=== PATIENT | female | born 1950 | race Caucasian/White ===

== ENCOUNTER 2025-05-09 20:10 | Inpatient (IN) | payer MEDICARE ==
[~2025-05-09] VITALS: Ht 157.5 cm; Wt 62.1 kg
[2025-05-09] MEDS ORDERED: IBLOOD GLUCOSE TEST STRIP 1 EA TEST XX ONE (20:30)
[2025-05-09 20:47] LABS: BASOPHILS 0.4 % (0.1-1.2)
[2025-05-09] MEDS ORDERED: LACTATED RINGER'S 1,000 ML IV ONE ×2 (21:00→23:30)
[2025-05-09 21:30] LABS: EOSINOPHILS 0.2 % (0.7-5.8); LYMPHOCYTES 10.7 % (19.3-51.7); MCH 20.6 PG (25.6-32.2); MCHC 27.9 g/dL (32.2-35.5); MCV 74.0 fL (79.4-94.8); MONOCYTES 2.3 % (4.7-12.5); NEUTROPHILS 85.8 % (34.0-71.1); RBC 7.18 M/uL (3.93-5.22)
[2025-05-09 21:54] LABS: ALT (SGPT) 48.0 U/L (14-59); AST (SGOT) 42.0 U/L (15-37); GLOMERULAR FILTRATION RATE,EST 19.0 mL/min (>60); PROTEIN, TOTAL 6.8 g/dL (6.4-8.2); UREA NITROGEN 49.0 mg/dL (7-18)
[2025-05-09 22:28] LABS: LACTIC ACID, BLOOD 3.6 mmol/L (0.4-2.0)
[2025-05-09 22:54] LABS: BLOOD/HGB, URINE NEGATIVE (Negative); KETONE, URINE NEGATIVE (Negative); LEUK ESTERASE, URINE TRACE (negative); NITRITE, URINE POSITIVE (negative)
[2025-05-09 23:06] LABS: BACTERIA, URINE 3+ /hpf (negative); CASTS, URINE NONE SEEN \\lpf; CRYSTALS, URINE NONE SEEN (0-1+); EPITHELIAL CELLS, URINE SQUAMOUS 1+ /lpf (0-1+); REFLEX CULTURE, URINE Yes (No)
[2025-05-10] VITALS (29 sets, daily range): BP systolic 88–142; BP diastolic 48–72
[2025-05-10] LABS: LACTIC ACID, BLOOD 2.9 mmol/L (0.4-2.0)
[2025-05-10] MEDS ORDERED: NOREPINEPHRINE BITARTRATE 250 ML IV SCH (00:45)
[2025-05-10] MEDS ORDERED: LACTATED RINGER'S 1,000 ML IV ONE ×3 (04:00→13:15)
[2025-05-10] MEDS ORDERED: LIDOCAINE 2% VISCOUS 6 ML SYR TOP ONE (04:30)
[2025-05-10] MEDS ORDERED: AZITHROMYCIN 500 MG in DEXTROSE 5% 250 ML IV ONE (04:45)
[2025-05-10] MEDS ORDERED: OXYCODONE-ACET1 EAC3 PO (07:56)
[2025-05-10] MEDS ORDERED: TIZANIDINE HCL2 MG PO (07:57)
[2025-05-10] MEDS ORDERED: TRELEGY ELLIPT1 EACH INH (07:57)
[2025-05-10] MEDS ORDERED: BUPROPION XL150 MG PO (07:58)
[2025-05-10] MEDS ORDERED: AMIODARONE HCL200 MG PO (07:59)
[2025-05-10] MEDS ORDERED: PREGABALIN100 MG PO (08:00)
[2025-05-10] MEDS ORDERED: ATORVASTATIN CA40 MG PO (08:00)
[2025-05-10] MEDS ORDERED: FARXIGA10 MG PO (08:00)
[2025-05-10] MEDS ORDERED: SODIUM CHLORIDE 0.9% 1,000 ML IV SCH (08:00)
[2025-05-10] MEDS ORDERED: VENTOLIN HFA18 GM INH (08:01)
[2025-05-10] MEDS ORDERED: FUROSEMIDE40 MG PO (08:01)
[2025-05-10] MEDS ORDERED: DILTIAZEM HCL60 MG PO (08:02)
[2025-05-10] MEDS ORDERED: ELIQUIS5 MG PO (08:02)
[2025-05-10] MEDS ORDERED: SPIRONOLACTONE25 MG PO (08:02)
[2025-05-10] MEDS ORDERED: METFORMIN HCL500 MG PO (08:03)
[2025-05-10] MEDS ORDERED: METOPROLOL SUC100 MG PO (08:03)
[2025-05-10] MEDS ORDERED: LISINOPRIL20 MG PO (08:03)
[2025-05-10] MEDS ORDERED: ESOMEPRAZOLE MA40 MG PO (08:04)
[2025-05-10] MEDS ORDERED: DULOXETINE HCL60 MG PO (08:04)
--- NOTE | 2025-05-10 08:15 | NUR ---
PT TO FLOOR WITH ADALGISA GONZALES. PT DROWSY BUT ANSWERING QUESTIONS APPROPRIATLY. TEJINDERBEHZAD AT 5 MCQ. SWITCHED TO OUR MONITORS. HAD A SMALL BM AND CLEANED UP WITH ELENA SOUZA. PT THEN STATES THAT HER ABD IS PAINFUL "LIKE A RUBBERBAND IS WRAPPED AROUND HER INSIDES". ABD DOES APPEAR DISTENDED AND TENDED ON RIGHT TO MID SIDE. LAB IN ROOM TO DRAW BLOOD.
[2025-05-10] MEDS ORDERED: ELECTROLTYTE REPLACEMEMT CCU 1 EACH EA PO/IV SCH (09:00)
[2025-05-10] MEDS ORDERED: POTASSIUM CHLORIDE 10 MEQ TABCR PO ONE ×2 (09:00→20:45)
[2025-05-10] MEDS ORDERED: POTASSIUM REPLACEMENT PROTOCOL ORAL/IV PO/IV SCH (09:00)
[2025-05-10] MEDS ORDERED: PANTOPRAZOLE SODIUM 40 MG TABEC PO SCH (09:00)
[2025-05-10] MEDS ORDERED: MAGNESIUM REPLACEMENT PROTOCOL ORAL/IV PO/IV SCH (09:00)
--- NOTE | 2025-05-10 10:07 | NUR ---
DR HURD AT BEDSIDE WHILE DRAWING LABS. ASKED TO TURN THE NOREPI DOWN TO 2 MCG. PT REMAINS DROWSY.
[2025-05-10 10:25] LABS: GLOMERULAR FILTRATION RATE,EST 24.0 mL/min (>60); UREA NITROGEN 45.0 mg/dL (7-18)
--- NOTE | 2025-05-10 11:14 | NUR ---
PT INSISTED ON GETTING TO BSC FOR BM. 2 PERSON ASSIST AND PT DID OK. HAD A VERY LARGE FORMED BM. PT STATES SHE FEELS BETTER. REMAINS DROWSY BUT ORIENTED. TURNED DOWN NOREPI TO 1.0MCG
[2025-05-10] MEDS ORDERED: PHARMACY RENAL DOSE ADJUSTMENT 1 DOSE MISC PO SCH (12:00)
--- NOTE | 2025-05-10 12:22 | NUR ---
PT RESTING IN BED, CALL LIGHT WITHIN REACH, BEDRAILS UP FOR SAFETY. PT RESTING WITH EYES CLOSED, RESPIRATIONS EVEN AND UNLABORED. MEDICATION TITRATION COMPLETED PER ORDER.
--- NOTE | 2025-05-10 13:20 | NUR ---
SPOKE WITH DR Estes AND PT REGARDING POSSIBLITY OF GALLBLADDER SURGERY AND NEED TO HOLD BLOOD THINNERS FOR 48 HRS. PT DROWSY BUT VERBALIZED UNDERSTANDING. ORDERED CT WITH CONTRAST, GIVING BOLUS AND DRAWING LABS PRIOR TO IMAGING. TURNED LEVO DOWN TO 2.0MCG.
--- NOTE | 2025-05-10 14:39 | NUR ---
PT BOLUS COMPLETE, SWITCHED BACK TO IVF AT 125. PT STILL SLEEPING, CALL LIGHT IN LAP. AROUSES TO VOICE.
--- NOTE | 2025-05-10 15:01 | NUR ---
LAB DRAWING BMP. PT TOLERATED WELL.
[2025-05-10 15:16] LABS: GLOMERULAR FILTRATION RATE,EST 31.0 mL/min (>60); UREA NITROGEN 41.0 mg/dL (7-18)
--- NOTE | 2025-05-10 15:42 | NUR ---
PATIENT BRIEF WAS CHANGED BY THIS AUGER MILL OPERATOR AND ADALGISA PURDY. PERICARE WAS DONE AND WATER WAS REFILLED. PATIENTS CALL LIGHT IS WITHIN REACH AND NO FURTHER NEEDS AT THIS TIME.
--- NOTE | 2025-05-10 16:25 | NUR ---
TOOK PT TO CT WITH ELENA ARCHIBALD. PT TOLERATED WELL. BACK TO ROOM. PT STATES SHE IS JUST SO TIRED TODAY. TURNED OFF LEVO.
--- NOTE | 2025-05-10 17:08 | NUR ---
PATIENT WAS SAT UP IN BED TO EAT DINNER. PATIENTS CALL LIGHT IS WITHIN REACH AND NO FURTHER NEEDS AT THIS TIME.
--- NOTE | 2025-05-10 18:01 | NUR ---
PT LOOKING FOR GLASSES AND CELL PHONE. BELONGINGS INVENTORY REVIEWED, NEITHER WERE PRESENT ON ARRIVAL. VM LEFT FOR FRIEND, DON INQUIRING LOCATION OF ITEMS. SPOKE WITH DTR ALSO ON CONTACT LIST, SHE WAS UNABLE TO ASSIST SHE WAS NOT HERE AT TIME OF ADMISSION. CALL THEN PLACED TO ARNALDO, FRIEND, WHO STATED THEY DO HAVE HER GLASSES, CELL PHONE, AND PURSE. SHE STATED THEY WOULD BE DROPPING THESE WELL HER SUITCASE OFF TOMORROW MORNING. PT INFORMED AND VERBALIZED UNDERSTANDING.
--- NOTE | 2025-05-10 18:32 | NUR ---
PT UP TO BSC WITH MORE DIAHRREA. TOLERATED WELL. RATES BELLY AND FLANK PAIN 6\10. CALLED DR HURD FOR PAIN MEDS.
[2025-05-10] MEDS ORDERED: HYDROmorphone HCL 1 MG/ML SYR IV PRN (18:45)
[2025-05-10] MEDS ORDERED: NICOTINE 14 MG/24 HR 1 EA TDSY TD SCH (19:19)
--- NOTE | 2025-05-10 19:48 | NUR ---
RECEIVED REPORT FROM DAY SHIFT RN. PATIENT IS RESTING IN BED WITH EYES CLOSED, RR 22. NAD NOTED. CALL LIGHT IN REACH. BED ALARM ON FOR SAFETY.
[2025-05-10] MEDS ORDERED: ACETAMINOPHEN 500 MG TAB PO PRN (21:15)
--- NOTE | 2025-05-10 21:57 | NUR ---
PATIENT IN CONT OF STOOL. PATIENTS ATTEND CHNAGED AND HAZEL CARE COMPLETED. PATIENT REPOSITIONED IN BED. PATIENTS PM MEDS GIVEN PER ORDER. PATIENT GIVEN PRN TYLENOL FOR A TEMP OF 100.1. PATIENT DENIES ANY PAIN OR NAUSEA. RAMACHANDRAN CARE COMPLETED. SIPS OF WATER PROVIDED PATIENT TITRATED TO RA. PATIENT DENIES NAY FURTHER NEEDS. CALL LIGHT IN REACH.
--- NOTE | 2025-05-10 22:44 | NUR ---
THIS RN ROUNDING ON PATIENT, SLEEPING, RESPIRATIONS EVEN. IV FLUIDS INFUSING. BED ALARM IN PLACE FOR SAFETY. PT ALLOWED TO SLEEP AT THIS TIME.
--- NOTE | 2025-05-10 23:00 | NUR ---
PATIENT IS RESTING IN BED WITH EYES CLOSED, RR 21. NAD NOTED. CALL LIGHT IN REACH. BED ALARM ON FOR SAFETY.
[2025-05-11] VITALS (20 sets, daily range): BP systolic 104–154; BP diastolic 58–95
--- NOTE | 2025-05-11 00:13 | NUR ---
PATIENT ASSESMENT COMPLETED. PATIENT DENIES ANY PAIN OR NAUSEA. PATIENTS ATTEND DRY AT THIS TIME. PATIENTS RAMACHANDRAN EMPTIED. INTAKE AND OUTPUT RECORDED. PATIENT REPOSITIONED IN BED. PATIENT REMAINS ON 2L VIA NC. PATIENT DENIES NAY NEEDS. CALL LIGHT IN REACH. IV INFUSING PER ORDER. BED ALARM ON FOR SAFETY.
--- NOTE | 2025-05-11 01:57 | NUR ---
PATIENT IS RESTING IN BED. PATIENT REPOSITIONED IN BED. PATIENT DENIES ANY PAIN. PATIENT LETY ANY NEEDS. CALL LIGHT IN REACH. BED ALARM ON FOR SAFETY. PATIENT TITRATED TO 1L VIA NC. NAD NOTED. ATTEND DRY AT THIS TIME. CALL LIGHT IN REACH.
--- NOTE | 2025-05-11 03:06 | NUR ---
PATIENT IS RESTING IN BED ON RIGHT SIDE, RR 20. NAD NOTED. CALL LIGHT IN REACH.
--- NOTE | 2025-05-11 04:15 | NUR ---
PATIENT IS RESTING IN BED. PATIENT AWOKE WHEN THIS RN ENTERED ROOM. PATIENT DENIES ANY PAIN OR NAUSEA. ATTEND DRY AT THIS TIME. RAMACHANDRAN EMPTIED. PATIENT REMAINS ON 1L NC. IV INFUSING PER ORDER. PATIENT REPOSITIONED. PATIENT IS DROWSY. PATIEN IS AAOX4. NO FURTHER NEEDS NOTED. CALL LIGHT IN REACH. BED ALARM ON FOR SAFETY.
--- NOTE | 2025-05-11 05:00 | NUR ---
PATIENT IS RESTING IN BED WITH EYES CLOSED, RR 23. NAD NOTED. CALL LIGHT IN REACH. BED ALARM ON FOR SAFETY. IV INFUSING PER ORDER.
[2025-05-11 05:35] LABS: BASOPHILS 0.2 % (0.1-1.2); EOSINOPHILS 0.7 % (0.7-5.8); LYMPHOCYTES 12.1 % (19.3-51.7); MCH 20.9 PG (25.6-32.2); MCHC 28.8 g/dL (32.2-35.5); MCV 72.6 fL (79.4-94.8); MONOCYTES 8.1 % (4.7-12.5); NEUTROPHILS 78.6 % (34.0-71.1); RBC 5.36 M/uL (3.93-5.22)
[2025-05-11 05:42] LABS: GLOMERULAR FILTRATION RATE,EST 45.0 mL/min (>60); UREA NITROGEN 31.0 mg/dL (7-18)
--- NOTE | 2025-05-11 06:00 | NUR ---
PATIENT INCONT OF STOOL. HAZEL CARE COMPLETED. NEW ATTEND IN PLACE. PATIENT DENIES ANY PAIN. PATIENT REMAINS ON 1L VIA NC. PATIENT PROIVDED FRESH ICE WATER AND COFEE. RAMACHANDRAN EMPITED AND RAMACHANDRAN CARE COMPLETED. PATIENT DENIES ANY FURTHER NEEDS. CALL LIGHT IN REACH. BED ALARM ON FOR SAFETY.
--- NOTE | 2025-05-11 07:23 | EKG ---
[facility] [address] [facility] [place], [place] [address] Signed Sinus bradycardia Septal infarct , age undetermined Abnormal ECG No previous ECGs available Confirmed by BUNNY HRUD MD ([id number]) on 05/11/2025 7:23:13 AM Electronically Signed By: BUNNY HURD 05/11/25722 PATIENT NAME: SILVIA ROMERO Electrocardiogram DATE OF : 54 PHYSICIAN: BUNNY HURD REPORT #: [id number] REPORT IS CONFIDENTIAL AND NOT TO BE RELEASED WITHOUT AUTHORIZATION
--- NOTE | 2025-05-11 07:40 | NUR ---
REPORT RECEIVED FROM ADALGISA EGAN. PT SLEEPING IN BED. CALL LIGHT ON LAP.
[2025-05-11] MEDS ORDERED: LACTOBACILLUS RHAMNOSUS GG 1 EACH CAP PO SCH (09:00)
--- NOTE | 2025-05-11 09:15 | NUR ---
PT'S NIECE CALLED FOR AN UPDATE AND THEN TRANSFERED INTO PT ROOM TO SPEAK WITH PT.
[2025-05-11] MEDS ORDERED: IBLOOD GLUCOSE TEST STRIP 1 EA TEST XX PRN (09:45)
[2025-05-11] MEDS ORDERED: PIPERACILLIN/TAZOBACTAM 4.5 GM in SODIUM CHLORIDE 0.9% 100 ML IV SCH (09:45)
[2025-05-11] MEDS ORDERED: DEXTROSE 5% 1,000 ML IV PRN (09:45)
[2025-05-11] MEDS ORDERED: GLUCAGON,HUMAN RECOMBINANT 1 MG/ML VIAL SUB-Q PRN (09:45)
[2025-05-11] MEDS ORDERED: DEXTROSE 50% 50 ML SYR IV PRN ×2 (09:45)
--- NOTE | 2025-05-11 10:25 | NUR ---
PT CALLED TO REPORT SHE HAD ANOTHER LOOSE STOOL. CHANGED WITH ASSISTANCE FROM ELENA LEWIS. PT DENIES NEEDS ATT. REMINDED THAT [employer] WOULD BE IN LATER TODAY TO WORK WITH HER. OFFERED TO GET UP TO CHAIR. STATES THAT SHE NEEDS A NAP FIRST.
--- NOTE | 2025-05-11 11:00 | NUR ---
PT FRIENDS CAME IN AND BROUGHT HER GLASSES, PURSE, CELL PHONE AND PRODUCTION ASSEMBLER AND SUITCASE. PT HAPPY TO HAVE HER GLASSES, SHE CAN NOW READ THE TV GUIDE.
[2025-05-11] MEDS ORDERED: IBLOOD GLUCOSE TEST STRIP 1 EA TEST VI SCH (12:00)
[2025-05-11] MEDS ORDERED: Insulin Regular, Human 100 UNIT/ML ML SUB-Q SCH (12:00)
--- NOTE | 2025-05-11 12:37 | NUR ---
CHANGED PT AFTER ANOTHER BOUT OF DIAHRREA. LUNCH AT BEDSIDE. STATES THAT HER ABD STILL HURTS AND IS TENDER TO TOUCH.
--- NOTE | 2025-05-11 13:24 | NUR ---
SPOKE WITH DR RUSSO AND PT REGARDING POSSIBLE HIDA SCOPE TOMORROW. STILL HAS RUQ PAIN.
[2025-05-11 14:12] LABS: ALT (SGPT) 29.0 U/L (14-59); AST (SGOT) 30.0 U/L (15-37); PROTEIN, TOTAL 4.8 g/dL (6.4-8.2)
[2025-05-11] MEDS ORDERED: KLOR-CON 1010 MEQ PO (15:30)
[2025-05-11] MEDS ORDERED: FEROSUL325 MG PO (15:31)
--- NOTE | 2025-05-11 15:38 | NUR ---
medications reconciled using pharmacy records and discharge orders from [facility] on 03/23/25
--- NOTE | 2025-05-11 15:58 | NUR ---
PT GOT UP TO CHAIR WITH MANAGER MARKETING. BUT HAD A BM SOON SHE SAT DOWN. WENT IN AND CHANGED HER AND GOT HER BACK TO BED. RATES UPPER QUAD PAIN 6\10, GIVEN PRN. STATES SHE FEELS LIKE SHE HAS A FEVER, 98.7.
--- NOTE | 2025-05-11 17:05 | NUR ---
REPORT RECEIVED FROM CCU RN PT MOVED TO [facility] VIA BED. SHE IS AWAKE AND COOPERATIVE DENIES DISOCMFORTS. ORIENTED TO ROOM AND ROUTINE NEEDED ITEMS ON BEDSIDE TABLE.
--- NOTE | 2025-05-11 17:53 | NUR ---
PT EATS MOST OF EVENING MEAL AGREES SHE IS COMFORTABLE DENIES NEEDS
--- NOTE | 2025-05-11 19:41 | NUR ---
REPORT RECEIVED FROM SCARLETT DIANA. PT RESTING IN BED WITH CALL LIGHT WITHIN REACH. NO REQUESTS AT THIS TIME.
--- NOTE | 2025-05-11 20:52 | NUR ---
ASSESSMENT COMPLETE. PT RESTING IN BED WATCHING TV. PT HAD LOOSE STOOL, STOOL SAMPLE SENT ORDERED. COFFEE GIVEN REQUESTED. NO OTHER REQUESTS AT THIS TIME. CALL LIGHT WITHIN REACH.
--- NOTE | 2025-05-11 21:30 | NUR ---
PATIENT CALLED STATING SHE'S HAVING A BM AGAIN. 2 PA. HAZEL AND RAMACHANDRAN CARE PERFORMED. FRESH CHUX AND ATTENDS PLACED. NO FURTHER NEEDS AT THIS TIME. CALL LIGHT AND SIDE TABLE WITHIN REACH.
--- NOTE | 2025-05-11 22:21 | NUR ---
PT RESTING IN BED WATCHING TV. NO REQUESTS AT THIS TIME. CALL LIGHT WITHIN REACH.
--- NOTE | 2025-05-11 23:42 | NUR ---
PT RESTING IN BED WITH EYES CLOSED AND RESPIRATIONS EVEN AND UNLABORED. CALL LIGHT WITHIN REACH.
[2025-05-12] VITALS (8 sets, daily range): BP systolic 153–170; BP diastolic 87–97
--- NOTE | 2025-05-12 00:43 | NUR ---
PT RESTING IN BED WITH EYES CLOSED AND RESPIRATIONS EVEN AND UNLABORED. CALL LIGHT WTIHIN REACH.
--- NOTE | 2025-05-12 01:41 | NUR ---
RECEIVED REPORT FROM PRIOR RN - CLEMENTINA. PT SITTING UP IN THE BED WATCHING TV ON ROUNDS. DENIES ANY NEEDS, IS AWARE THAT SHE IS NPO FOR HIDA SCAN IN THE MORNING. PT STATES SHE IS STILL INCONTINENT OF STOOL, IT JUST COMES ON AND NO WARNING, ATTENDS IN PLACE. PT WAS VERY TALKATIVE AND VERY PLEASANT. SPENT ABOUT 10 MINUTES VISITING WITH PATIENT DURING ROUNDS. ALL PT CARE NEEDS MET AT THIS TIME, CALL LIGHT WITHIN REACH.
--- NOTE | 2025-05-12 03:44 | NUR ---
PT CALL LIGHT ON, REQUESTING TO BE CHANGED, HAD INCONTINENT EPISODE OF STOOL. THIS RN IN TO CHANGE PATIENT, STOOL IS MUCOUSY/LOOSE. PERICARE PERFORMED AROUND CATHETER, NEW ATTENDS IN PLACE. CALL LIGHT WITHIN REACH, PT HEAD ELEVATED AND PT WATCHING TV AT THIS TIME. DENIES ANY OTHER NEEDS.
--- NOTE | 2025-05-12 06:06 | NUR ---
MD NOTIFIED PATIENT HAS STILL HAVE 4 MUCOUSY STOOLS IN THE LAST FEW HOURS. CDIFF IS NEGATIVE, REVIEWED RESULTS WITH CHARGE. ORDER FOR IMODIUM 2MG Q12P. ORDERS REPEATED BACK AND VERIFIED, ORDERED FOR MD. NO OTHER CONCERNS AT THIS TIME.
[2025-05-12] MEDS ORDERED: LOPERAMIDE HCL 2 MG CAP PO PRN (06:15)
--- NOTE | 2025-05-12 08:01 | NUR ---
PT REPORTED BEING WET WHEN I WENT IN FOR BLOOD SUGAR CHECKS. I CHANGED PT, PROVIDING HAZEL CARE AND PICKED UP ROOM INCLUDING TAKING OUT TRASH. CALL LIGHT WITHIN REACH, AND PT NEEDING NOTHING MORE At this time.
--- NOTE | 2025-05-12 09:31 | NUR ---
PATIENT CALLED, THIS PRODUCTION INSPECTOR IN TO ASSIST. PATIENT HAD LARGE INCONT. BM. HAZEL CARE AND CATH CARE DONE. NEW DEPENDS IN PLACE. CALL LIGHT IN REACH. NO FURTHER NEEDS AT THIS TIME.
--- NOTE | 2025-05-12 10:21 | NUR ---
UR CLINICAL REVIEW: 2 MN FOR VERSALUS-PER LOANS CONSULTANT MEETS INPT FOR SEPSIS/UTI WITH NEED FOR SERIAL LABS,IVF, IV ABX AND MONITORING [facility] INPT 05/10/25 @ 0800 ORDER MATCHES REG CLINICALS FAXED TO [facility] FOR REVIEW DISCHARGE TO HOME WITH SPOUSE WHEN STABLE.
--- NOTE | 2025-05-12 11:00 | NUR ---
Received an unpleasant call from Brook's niece, Rubi. She is very upset as she attempted to get information and it was not given as she is not listed as a contact. She is stating she is the pts POA. I asked her if she could provide the POA paper work and I will include it in the EMR. She states she does not have any paperwork, the hospital in [place] calls her the POA. I let her know I cannot provide information, but I will ask the pt if I can add her as an Emergency contact. She cont. to speak loudly and I let her know I will call her later if I receive permissions.
--- NOTE | 2025-05-12 11:44 | NUR ---
PT WAS WITH RADIOLOGY SO I CHANGED BED LINENS AND CLEANED THE ROOM. UPON PT RETURN I GOT HER A WARM BLANKET AND CHANGED HER DIAPER, PERFORMED HAZEL CARE. PT'S RAMACHANDRAN WAS D/C'ED, SO I PREPARED COMMODE FOR USE ALSO. PT NPO. PT IN BED, HEAD AT APPROX. 20-DEGREE ANGLE AND WATCHING TV. CALL LIGHT WITHIN REACH. PT REPORTS NEEDING NOTHING MORE AT THIS TIME.
--- NOTE | 2025-05-12 11:57 | NUR ---
PT REPORTED A 7 ON A 1-10 PAIN SCALE. PT ASKED ME TO INFORM NURSE SHE WOULD LIKE SOMETHING FOR HER PAIN. PT STATED "THE SCAN TOOK IT OUT OF ME" AND MOANED IN PAIN. WENT TO INFORM RN AND GET PT WARM BLANKET. CALL LIGHT WITHIN REACH.
--- NOTE | 2025-05-12 12:21 | NUR ---
Patient back to room from having a hida scan. Patient awake, alert and oriented x3, no acute distress. Bed in low, alarm intact.
--- NOTE | 2025-05-12 12:32 | NUR ---
Rubi, patient's reported POA called requesting an update on patient. Rubi is not listed on face sheet to disclose medication information. Eplained to rubi I will transfer her call to the patient's room. Brook handed phone to speak with Rubi regarding updated plan of care. Patient is alert and oriented x3 at this time.
--- NOTE | 2025-05-12 12:46 | NUR ---
Dr. Gonzalez updated regarding current blood sugar of 88. No new orders.
--- NOTE | 2025-05-12 13:15 | NUR ---
THIS SPEECH THERAPIST BRUSHED PT'S DENTURES, WIPED HER BEHIND FOLLOWING A BM, LIQUID STOOL, GAVE A PARTIAL BED BATH, AND THEN THE PT WASHED HER OWN HANDS AT THE SINK. PT IS STILL NPO, WAITING FOR RESULTS OF A TEST GIVEN EARLIER TODAY. PT PUT HER DENTURES IN HER MOUTH AND SAID "I'M HUNGRY". PT IS LAYING WITH HEAD UP IN BED, 30 DEGREE ANGLE. PT IS WATCHING TV AND TALKING WITH PEOPLE ON THE PHONE. CALL LIGHT IS WITHIN REACH AND BED ALARMS ARE ON FOR SAFETY. PT REPORTS NEEDING NOTHING MORE AT THIS TIME.
--- NOTE | 2025-05-12 13:45 | NUR ---
CALL REC'D FROM PATIENT STATING MD HAD TOLD HER SHE CAN EAT. DIETARY ORDER VERIFIED. CALL PLACED TO DIETARY AND VM LEFT REQUESTING AFTERNOON MEAL.
--- NOTE | 2025-05-12 14:13 | NUR ---
PT HAD VITAL SIGNS TAKEN FOLLOWING AMBULATION TO THE TOILET. PT AMBULATES WITH STAND BY ASSIST. PT REPORTED SEVERAL TIMES THAT SHE IS "STARVING". A RN BROUGHT PT TWO CONTAINERS OF PUDDING, SHE ATE ONE - THE CHOCOLATE. PT IS SHAKY, AND SEEMS ANXIOUS OR AGGREVATED - PT IS ON A NICOTINE PATCH, BECAUSE THERE IS NO SMOKING IN THE HOSPITAL. THE PT CALLED HER NIECE, FOLLOWING A TALK WITH THE DOCTOR, ON SPEAKER PHONE. THE NIECE WAS NOT LISTENING TO HER AUNT AND WAS YELLING SO THE PT LOOKED MY DIRECTION, WANTING ME TO EXPLAIN. I STATED EXACTLY WHAT THE DOCTOR HAD SAID TO THE PT. THE DOCTOR SAID HE WILL SEE THE PT AROUND 0630 AND IF SHE IS DOING BETTER FOLLOWING EATING FOOD, AND HER BLOOD WORK CONTINUES TO SHOW IMPROVEMENT, THE PT MAY BE RELEASED TOMORROW AFTERNOON, BUT THE PT WILL NOT BE KICKED OUT IF A RIDE CAN NOT BE TO [place] FOR A FEW HOURS. THE NIECE STARTED YELLING ASKING IS SHE IS SUPPOSED TO CANCEL HER NEUROLOGY APPOINTMENT. I ASKED WHEN THE APPOINTMENT WAS AND SHE SAID 1000. I STATED THAT BASED ON WHAT THE DOCTOR HAD SAID, THAT THE NIECE SHOULD GO TO HER APPOINTMENT, THEN CALL HER AUNT AFTER THE APPOINTMENT, BY THEN THE PT SHOULD HAVE AN IDEA REGARDING HER DISCHARGE FROM THIS HOSPITAL. THE NIECE SEEMED TO CALM DOWN, THANKED ME FOR TALKING WITH HER, AND THE PT TOLD THE NIECE THAT SHE SHOULD JUST HEAD THIS WAY FOLLOWING HER APPOINTMENT, THEN THEY SAID GOODBYE. THE PT'S FOOD TRAY ARRIVED AND THE PT SAID SHE WAS NOT EATING THE SANDWICH, BUT ATE SOME OF THE SOUP. I GOT THE PT FRESH ICE WATER. PT IS WATCHING TV, SITTING UP IN BED, EATING HER SOUP. PT REPORTED NEEDING NOTHING MORE AT THIS TIME. CALL LIGHT IS WITHIN REACH.
--- NOTE | 2025-05-12 14:47 | NUR ---
Patient up to restroom to have a bowel movement then back to bed. Patient reports increased chronic lower back pain, reported pain scale 7/10. Admin dilaudid 0.5mg iv at this time. Scheduled abx started per order, iv patent. Patient updated regarding plan of care, she reports her understanding regarding hida scan results and advanced diet.
--- NOTE | 2025-05-12 15:30 | NUR ---
Spoke with Brook. She is from [place] and was passing through to go deep sea fishing with her boyfriend and friends. She [place] the [place] and was [place] to the hospital. She is feeling much better today, she felt she was going to when this first happened. She plans to go home tomorrow. She lives in a 1 story home with 7 steps to get in. She does not have any issues with the steps. She has a walker and brought it. She does not normally use a walker. Her pcp is Sergio Qureshi in [place]. She denies financial issue or safety issues. Her niece Rubi assists her with her Drs. seals and any needs. Rubi will transport the pt home tomorrow.
--- NOTE | 2025-05-12 17:00 | NUR ---
Attempted to call pts niece as she gave permission to update her chart to include Rubi as an emergency contact. I was unable to reach. I let her know the pt and Dr. Gonzalez plan on pt discharging tomorrow and she will need a ride home.
--- NOTE | 2025-05-12 17:45 | NUR ---
Patient awake in bed, alert and oriented x3, no acute distress. Patient reports her stomach feels better this evening, less loose stool per patient report. IV fluids infusing per order. No needs at this time. Personal supplies and call light within reach.
--- NOTE | 2025-05-12 18:14 | NUR ---
PT RESTING IN BED, VITALS TAKEN FOLLOWING PT GOING INTO THE BATHROOM TO URINATE AND HAVE A LIQUID BM. PT REPORTS THE RETURN OF PAIN - PT RATING PAIN AT 7-8 ON A 1-10 PT SCALE. TRANSCRIPTION MANAGER REPORT PAIN LEVEL TO PT'S RN. PT ATE 50% OF HER DINNER. CALL LIGHT WITHIN REACH, AND A FULL WATER CUP NEXT TO PT. PT REQUESTED ME TO LET HER RN KNOW HER PAIN LEVEL. PT WANTING NOTHING MORE AT THIS TIME. BED ALARMS ON.
--- NOTE | 2025-05-12 18:44 | NUR ---
Patient reports 7/10 lower back pain. Admin dilaudid 0.5mg iv at this time.
--- NOTE | 2025-05-12 19:41 | NUR ---
RECEIVED REPORT FROM ADALGISA READ. PT RESTING COMFORTABLY. DENIES ANY NEEDS OR CONCERNS AT THIS TIME. CALL LIGHT WITHIN REACH.
--- NOTE | 2025-05-12 20:30 | NUR ---
PT RESTING COMFORTABLY IN BED. THEATER USHER IN ROOM FOR VS. REPORTS 6/10 LOW BACK PAIN, MEDICATED W/ PRN TYLENOL. NEUROS WNL. A&Ox4. LSC. HRR. BTA. LBM TODAY. VOIDS WNL. RFA IV INFUSING NS @ 125. PT IS SBA W/ FWW. CALL LIGHT WITHIN REACH.
[2025-05-12] MEDS ORDERED: APIXABAN 5 MG TAB PO SCH (21:00)
[2025-05-12] MEDS ORDERED: AMIODARONE HCL 200 MG TAB PO SCH (21:00)
[2025-05-12] MEDS ORDERED: PIPERACILLIN/TAZOBACTAM 4.5 GM in DEXTROSE 5% 100 ML IV SCH (22:00)
--- NOTE | 2025-05-12 22:56 | NUR ---
IV ATB STARTED PER EMAR. PT AWAKE, DENIES ANY NEEDS OR CONCERNS AT THIS TIME.
--- NOTE | 2025-05-13 00:10 | NUR ---
BED ALARMING. PATIENT GOT UP TO USE THE RESTROOM. SBA FOR IV POLE MANAGEMENT. PATIENT VOIDED 300ML YELLOW URINE. HAZEL CARE ASSISTED PER PATIENT'S REQUEST. PATIENT IS BACK IN BED. ALARM ON FOR SAFETY.
--- NOTE | 2025-05-13 00:57 | NUR ---
PT SLEEPING SOUNDLY. IV ATB INFUSING. CALL LIGHT WITHIN REACH.
--- NOTE | 2025-05-13 01:32 | NUR ---
CALL LIGHT ANSWERED. PATIENT UP TO THE BATHROOM TO VOID AND LOOSE BM SBA AND BACK TO BED. HAZEL CARE ASSISTED PER PATIENT. BED ALARM ACTIVATED FOR SAFETY.
--- NOTE | 2025-05-13 02:47 | NUR ---
PT UP TO BR W/ SBA. VOIDS WNL AND LOOSE BM. PT MEDICATED W/ PRN IMMODIUM PER REQUEST. BACK TO BED. IVF INFUSING, IV ATB COMPLETED.
--- NOTE | 2025-05-13 05:10 | NUR ---
PT SLEEPING SOUNDLY. APPEARS COMFORTABLE.
[2025-05-13] MEDS ORDERED: ONDANSETRON 4 MG TAB ODT SL PRN (05:45)
[2025-05-13 06:19] VITALS: BP 147/99
[2025-05-13 06:33] LABS: BASOPHILS 0.4 % (0.1-1.2); EOSINOPHILS 0.9 % (0.7-5.8); LYMPHOCYTES 11.9 % (19.3-51.7); MCH 20.6 PG (25.6-32.2); MCHC 28.0 g/dL (32.2-35.5); MCV 73.5 fL (79.4-94.8); MONOCYTES 6.9 % (4.7-12.5); NEUTROPHILS 79.0 % (34.0-71.1); RBC 6.22 M/uL (3.93-5.22)
--- NOTE | 2025-05-13 06:36 | NUR ---
PRIMARY RN NOTIFIED RE BP AND HR.
[2025-05-13 06:43] LABS: GLOMERULAR FILTRATION RATE,EST 58.0 mL/min (>60); UREA NITROGEN 9.0 mg/dL (7-18)
[2025-05-13] MEDS ORDERED: POTASSIUM CHLORIDE 10 MEQ TABCR PO ONE ×2 (07:15→09:00)
--- NOTE | 2025-05-13 07:35 | NUR ---
Patient in bed sleeping, eyes closed, respirations even and non labored. Patient has no acute distress, call light within reach.
[2025-05-13 08:15] VITALS: BP 165/104
--- NOTE | 2025-05-13 08:15 | NUR ---
Patient tolerated a few bites of breakfast, she reports ongoing nausea, zofran in use. Patient reports she did not sleep well last night. IV fluids/abx infusing per order.
--- NOTE | 2025-05-13 09:18 | NUR ---
IN TO SPEAK WITH PT. DR. HURD NOTIFIED SHE WILL LIKELY DC TODAY. DISCUSSED DC AND IMM LETTER WITH PATIENT. OFFERED TO CALL AND NOTIFY HER NEICE OF DC. STATES HER NEICE HAS AN APPOINTMENT AT 10 THIS AM AND DOES NOT VERIFY IF SHE WANTS THIS NURSE TO NOTIFY HER NEICE OF DC TODAY.
[2025-05-13 09:24] VITALS: BP 159/100
--- NOTE | 2025-05-13 09:27 | NUR ---
PATIENT WAS IN BED AT THIS TIME, BATCH UNLOADER CHARTED VITALS AND I&O'S, THERAPY IS IN WITH HER NOW. CALL LIGHT WITH IN REACH AND NOTHING ELSE NEEDED AT THIS TIME.
[2025-05-13 10:24] LABS: GLOMERULAR FILTRATION RATE,EST 54.0 mL/min (>60); UREA NITROGEN 8.0 mg/dL (7-18)
--- NOTE | 2025-05-13 11:19 | NUR ---
PT NOT AVAILABLE FOR VISIT. PROVIDED PRAYER.
[2025-05-13 11:59] VITALS: BP 159/100
[2025-05-13] MEDS ORDERED: CIPRO500 MG PO (12:26)
[2025-05-13 12:34] VITALS: BP 163/95
--- NOTE | 2025-05-13 12:35 | NUR ---
HOURLY ROUNDING. PATIENT REQUESTED TO GET DRESSED TO GET READY TO LEAVE, VITALS HAVE BEEN DOCUMENTED. NO FURTHER REQUEST FROM PATIENT
[2025-05-13 13:00] VITALS: BP 163/95
--- NOTE | 2025-05-13 13:09 | NUR ---
SILVIA STATES SHE HAS SPOKE WITH HER NIECE AND SHE IS ON HER WAY TO PICK PATIENT UP TO TAKE HER HOME.
== END 2025-05-13 15:23 | disposition home or self-care (01) | DRG 872 ==
LOC: ED 20:10 → CCU 05-10 06:50 → MS 05-10 06:50 → EDBD 05-10 06:50 → MS 05-11 16:59
PROVIDERS: Internal Medicine; Surgery; ADMIT Internal Medicine; ATTEND Internal Medicine
DX: A41.9 Sepsis, unspecified organism (principal); N39.0 Urinary tract infection, site not specified; G45.9 Transient cerebral ischemic attack, unspecified; E87.1 Hypo-osmolality and hyponatremia; N17.9 Acute kidney failure, unspecified; J44.9 Chronic obstructive pulmonary disease, unspecified; I48.91 Unspecified atrial fibrillation; I10 Essential (primary) hypertension; I95.9 Hypotension, unspecified; Z79.51 Long term (current) use of inhaled steroids; Z79.899 Other long term (current) drug therapy; Z90.49 Acquired absence of other specified parts of digestive tract; Z88.0 Allergy status to penicillin; Z88.8 Allergy status to other drugs, medicaments and biological substances
CPT/HCPCS: 36415; 51702; 51798; 70450; 70496; 70498; 71045; 74160; 74177; 76705; 78227; 80048; 80053; 80076; 81001; 82150; 82550; 83605; 83735; 83880; 84132; 84484; 85025; 85060; 87040; 87077; 87088; 87186; 93005; 93010; 94799; 96361; 96365; 96367; 96375; 97161; 99291; 99292; A4311; A9270; A9537; J0456; J0696; J1171; J2543; J2805; J7030; J7060; J7121; Q9967